=== PATIENT | male | born 1940 | race Caucasian/White ===

== ENCOUNTER 2018-09-26 11:22 | Inpatient (IN) | payer SELFPAY ==
[~2018-09-26] VITALS: Ht 182.9 cm; Wt 82.1 kg
[2018-09-26 11:29] VITALS: BP 122/77
--- NOTE | 2018-09-26 11:40 | NUR ---
C/O CHEST PAIN AND REGINALD SHORTNESS OF BREATH X5 DAYS AT 5/10. PT ALSO REPORTS PAIN WITH URINATION. DENIES N/V/D; SKIN IS PINK/WARM/DRY; AAOX4 WITH EVEN AND STEADY GAIT; LUNGS CLEAR BL; PT DENIES ANY FEVER OR COUGH AT THIS TIME; PATIENT STATES PAIN OF 0/10 AT THIS TIME; VSS; PATIENT POSITIONED FOR COMFORT; HOB ELEVATED; BEDRAILS UP X2; BED DOWN. ER MD MADE AWARE OF PT STATUS.
--- NOTE | 2018-09-26 12:00 | NUR ---
PT's urine has been collected through catheter, size 14.
[2018-09-26 12:13] LABS: BASOPHILS % (AUTO) 0.7 % (0.0-2.0); EOSINOPHILS # (AUTO) 0.1 K/uL (0-0.4); EOSINOPHILS % (AUTO) 1.9 % (0.0-4.0); HEMATOCRIT 41.3 % (36-52); HEMOGLOBIN 14.1 g/dL (12.0-18.0); LYMPHOCYTES # (AUTO) 1.9 K/uL (2.0-11.5); LYMPHOCYTES % (AUTO) 31.7 % (20.5-51.1); MEAN CORPUSCULAR HEMOGLOBIN 33 pg (27-31); MEAN CORPUSCULAR HGB CONC 34 g/dL (33-37); MEAN CORPUSCULAR VOLUME 96.7 fL (80-94); MONOCYTES # (AUTO) 0.5 K/uL (0.8-1.0); MONOCYTES % (AUTO) 9.2 % (1.7-9.3); NEUTROPHILS # (AUTO) 3.3 K/uL (1.8-7.7); NEUTROPHILS % (AUTO) 56.5 % (42.2-75.2); PLATELET COUNT (AUTO) 311 K/uL (140-450); RED BLOOD CELL COUNT(AUTO) 4.27 MIL/uL (4.20-6.10); RED CELL DISTRIBUTION WIDTH 12.9 % (11.6-13.7); WHITE BLOOD COUNT (AUTO) 5.9 K/uL (4.8-10.8)
[2018-09-26 12:27] LABS: ANION GAP 12.8 (8-16); CARBON DIOXIDE 29.2 mmol/L (21-32); CHLORIDE 103 mmol/L (98-107); CREATININE 1.5 mg/dL (0.7-1.3); GLUCOSE 104 mg/dL (74-106); SODIUM SERUM 141 mmol/L (136-145); UREA NITROGEN, BLOOD 20 mg/dL (7-18)
[2018-09-26 12:33] LABS: ALBUMIN 4.1 g/dL (3.4-5.0); ASPARTATE AMINOTRANSFERASE 20 U/L (15-37); TOTAL BILIRUBIN 0.5 mg/dL (0.0-1.0)
[2018-09-26 12:34] LABS: PROTHROMBIN TIME 9.9 secs (10.8-13.4)
[2018-09-26 13:12] LABS: APPEARANCE,URINE CLEAR (CLEAR); BILIRUBIN,URINE NEGATIVE (NEGATIVE); BLOOD, URINE TRACE-I (NEGATIVE); COLOR,URINE YELLOW (YELLOW); LEUKOCYTE ESTERASE ,URINE NEGATIVE (NEGATIVE); NITRITE, URINE NEGATIVE (NEGATIVE); UGLUCOSE NEGATIVE (NEGATIVE)
[2018-09-26 13:17] LABS: BARBITURATE, URINE NEG. ng/ml (NEG <=200); BENZODIAZEPINE, URINE NEG. ng/mL (NEG <=200); CANNABINOID, URINE NEG. ng/mL (NEG <=50); COCAINE, URINE NEG. ng/mL (NEG <=300); OPIATE, URINE NEG. ng/mL (NEG <=2000); PHENCYCLIDINE SCREEN,URINE NEG. ng/mL (NEG <=25)
[2018-09-26 13:23] LABS: RBC,URINE 11-20 (MOD) /HPF (0-5); WBC,URINE 0-5 /HPF (0-5)
[2018-09-26 13:25] LABS: URIC ACID 5.6 mg/dL (2.6-7.2)
[2018-09-26 13:38] LABS: C-REACTIVE PROTEIN QUANT < 0.2 mg/dL (0.0-0.9)
[2018-09-26] MEDS ORDERED: AMIO200T5 PO ×3 (16:27→17:58)
[2018-09-26] MEDS ORDERED: ORE25 PO ×3 (16:27→17:58)
[2018-09-26] MEDS ORDERED: ACETAMINOPHEN 325 MG TAB PO PRN (16:35)
[2018-09-26] MEDS ORDERED: ONDANSETRON 4 MG/2 ML VIAL IM/IVP PRN (16:35)
[2018-09-26] MEDS ORDERED: HYDROcodone/APAP 7.5/325 MG 1 TAB PO PRN (16:35)
[2018-09-26] MEDS ORDERED: DOCUSATE SODIUM 100 MG GELCAP PO PRN (16:35)
[2018-09-26 17:00] VITALS: BP 131/72
--- NOTE | 2018-09-26 17:00 | NUR ---
RECEIVED PATIENT FROM ED VIA WHEELCHAIR. PATIENT ABLE TO AMBULATE WITH A STEADY GAIT. PATIENT IS AAOX4, LUXEMBOURGER SPEAKING. RESPIRATIONS ARE EVEN AND UNLABORED ON ROOM AIR. PATIENT DENIES ANY PAIN AT THIS TIME. LEFT HAND 20G IV INTACT AND SL. PLAN OF CARE WAS REVIEWED WITH PATIENT IN LUXEMBOURGER. PATIENT VERBALIZED UNDERSTANDING. SAFETY MEASURES IN PLACE, CALL LIGHT WITHIN REACH.
--- NOTE | 2018-09-26 17:09 | NUR ---
Patient will be admitted to care of A-flutter and chest pain. Admited to Telemetry. Will go to room 127A. Belongings list completed. Report to ANA Leija.
[2018-09-26] MEDS ORDERED: SERMDI INH (17:33)
[2018-09-26] MEDS ORDERED: FLUT1BLS13 IH (17:35)
[2018-09-26 17:53] LABS: CHOL/HDL RATIO 4.6 (1-4.5); FREE T4 (FREE THYROXINE) 0.56 ng/dL (0.76-1.46); PHOSPHORUS 3.8 mg/dL (2.5-4.9); THYROID STIMULATING HORMONE 51.85 uIU/mL (0.34-3.74)
[2018-09-26] MEDS: NACL 0.9% 1,000 ML IV SCH ×2 (18:02→22:00)
[2018-09-26] MEDS ORDERED: BISACODYL 10 MG SUPP RC PRN (19:10)
--- NOTE | 2018-09-26 19:20 | NUR ---
ENDORSED TO AIR FORCE SENIOR OFFICER FOR CONTINUITY OF CARE. PATIENT IS STABLE AT THIS TIME.
--- NOTE | 2018-09-26 19:21 | NUR ---
RECEIVED REPORT FROM DAY SHIFT NURSE KORTNEY-RN AT BEDSIDE. PT RESTING IN BED WITH FAMILY AT BEDSIDE. AOX4- SERBIAN SPEAKING, ON ROOM AIR WITH LEFT AC #20G RUNNING NS @60ML/HR. DISCUSSED PLAN OF CARE AND PT VERBALIZED UNDERSTANDING. NO S/S OF RESPIRATORY DISTRESS OR DISCOMFORT NOTED AT THIS TIME. BED IN LOWEST POSITION, BED BREAKS ON, BOTH SIDE RAILS UP. BEDSIDE TABLE AND CALL LIGHT ARE WITHIN REACH. WILL CONTINUE TO MONITOR.
[2018-09-26] MEDS ORDERED: NACL 0.9% 1,000 ML IV ONE (19:25)
--- NOTE | 2018-09-26 19:56 | NUR ---
NS BOLUS GIVEN AND TOLERATED WELL.
[2018-09-26 20:00] VITALS: BP 139/73
[2018-09-26] MEDS ORDERED: LEVOTHYROXINE 0.075 MG TAB PO SCH (20:00)
[2018-09-26] MEDS ORDERED: BISACODYL 10 MG SUPP RC SCH (20:00)
--- NOTE | 2018-09-26 20:30 | NUR ---
STYLES CATHETER INSERTED BY NURSE HEALTHCARE MANAGER NURSE DENISHA. PT TOLERATED WELL WITH OUTPUT OF 100ML. NO S/S OF RESPIRATORY DISTRESS OR DISCOMFORT NOTED AT THIS TIME. WILL CONTINUE TO MONITOR.
--- NOTE | 2018-09-26 20:36 | NUR ---
SCHEDULED MEDICATIONS GIVEN AND TOLERATED WELL. PT HAD JUST RETURNED FROM HAVING A SMALL BM- ADMITS TO CONSTIPATION. SUPPOSITORY GIVEN AND TOLERATED WELL. NO S/S OF RESPIRATORY DISTRESS OR DISCOMFORT NOTED AT THIS TIME. WILL CONTINUE TO MONITOR.
--- NOTE | 2018-09-26 21:56 | NUR ---
SCHEDULED MEDICATION HEPARIN SUBQ GIVEN AND TOLERATED WELL. NO S/S OF RESPIRATORY DISTRESS OR DISCOMFORT NOTED AT THIS TIME. WILL CONTINUE TO MONITOR.
--- NOTE | 2018-09-26 22:02 | NUR ---
NEW BAG OF IVF GIVEN AND TOLERATED WELL. NO S/S OF RESPIRATORY DISTRESS OR DISCOMFORT NOTED AT THIS TIME. WILL CONTINUE TO MONITOR.
[2018-09-26] MEDS: ALBUTEROL SULFATE/IPRATROPIU 3 ML SOL IH SCH (22:39)
[2018-09-27] VITALS: BP 141/70
--- NOTE | 2018-09-27 | NUR ---
VITAL SIGNS TAKEN AND TOLERATED WELL. NO S/S OF RESPIRATORY DISTRESS OR DISCOMFORT NOTED AT THIS TIME. WILL CONTINUE TO MONITOR.
[2018-09-27 01:21] LABS: ANION GAP 11.5 (8-16); CARBON DIOXIDE 28.1 mmol/L (21-32); CHLORIDE 104 mmol/L (98-107); CREATININE 1.2 mg/dL (0.7-1.3); GLUCOSE 93 mg/dL (74-106); POTASSIUM 3.6 mmol/L (3.5-5.1); SODIUM SERUM 140 mmol/L (136-145); UREA NITROGEN, BLOOD 18 mg/dL (7-18)
--- NOTE | 2018-09-27 02:00 | NUR ---
PT CONTINUES TO SLEEP IN BED. NO S/S OF RESPIRATORY DISTRESS OR DISCOMFORT NOTED AT THIS TIME. WILL CONTINUE TO MONITOR.
[2018-09-27 04:00] VITALS: BP 115/75
--- NOTE | 2018-09-27 04:00 | NUR ---
VITAL SIGNS TAKEN AND TOLERATED WELL. NO S/S OF RESPIRATORY DISTRESS OR DISCOMFORT NOTED AT THIS TIME. WILL CONTINUE TO MONITOR.
[2018-09-27] MEDS: LEVOTHYROXINE 0.075 MG TAB PO SCH (06:17)
--- NOTE | 2018-09-27 06:17 | NUR ---
SCHEDULED MEDICATION GIVEN AND TOLERATED WELL. OFFERED COLACE FOR CONSTIPATION AND PT AGREED. COLACE GIVEN AND TOLERATED WELL. NO S/S OF RESPIRATORY DISTRESS OR DISCOMFORT NOTED AT THIS TIME. WILL CONTINUE TO MONITOR.
[2018-09-27 06:20] LABS: BASOPHILS % (AUTO) 0.6 % (0.0-2.0); EOSINOPHILS # (AUTO) 0.1 K/uL (0-0.4); EOSINOPHILS % (AUTO) 1.8 % (0.0-4.0); HEMOGLOBIN 13.9 g/dL (12.0-18.0); LYMPHOCYTES # (AUTO) 2.4 K/uL (2.0-11.5); LYMPHOCYTES % (AUTO) 32.8 % (20.5-51.1); MEAN CORPUSCULAR HEMOGLOBIN 33 pg (27-31); MEAN CORPUSCULAR HGB CONC 34 g/dL (33-37); MEAN CORPUSCULAR VOLUME 96.5 fL (80-94); MONOCYTES # (AUTO) 0.6 K/uL (0.8-1.0); MONOCYTES % (AUTO) 8.7 % (1.7-9.3); NEUTROPHILS # (AUTO) 4.2 K/uL (1.8-7.7); NEUTROPHILS % (AUTO) 56.1 % (42.2-75.2); PLATELET COUNT (AUTO) 298 K/uL (140-450); RED BLOOD CELL COUNT(AUTO) 4.25 MIL/uL (4.20-6.10); RED CELL DISTRIBUTION WIDTH 12.9 % (11.6-13.7); WHITE BLOOD COUNT (AUTO) 7.4 K/uL (4.8-10.8)
--- NOTE | 2018-09-27 06:24 | NUR ---
EDGARDO RADIOLOGIST STATED PT CANNOT HAVE CONTRAST PUT IN THE CURRENT IV SITE OF LEFT HAND #20G. NEEDS TO HAVE ANOTHER IV SITE LOCATED PREFERABLY IN THE AC #20G. DR. COY AWARE STATING OK TO GIVE CT OF NECK AND ABDOMEN HOWEVER TO HOLD ANGIOGRAM. ALSO AWARE OF PT CONSTIPATION AND SAID IT WAS OK TO GIVE SUPPOSITORY. WILL OFFER TO PT.
[2018-09-27] MEDS: ALBUTEROL SULFATE/IPRATROPIU 3 ML SOL IH SCH ×3 (06:52→22:08)
--- NOTE | 2018-09-27 07:45 | NUR ---
RECEIVED REPORT FROM MARGE, TRANSFERRING PATIENT TO MY CARE. PATIENT IN STABLE CONDITION. NO SIGNS OF DISTRESS ON RA.
[2018-09-27 08:00] VITALS: BP 110/66
[2018-09-27] MEDS ORDERED: SODIUM PHOSPHATE 118 ML ENEM RC SCH (09:05)
--- NOTE | 2018-09-27 09:13 | NUR ---
PATIENT HAS BEEN SCREENED AND CATEGORIZED MODERATE NUTRITION RISK. PATIENT WILL BE SEEN WITHIN 3-5 DAYS OF ADMISSION. 09/29/18[address]
[2018-09-27] MEDS: LISINOPRIL 5 MG TAB PO SCH (09:39)
[2018-09-27] MEDS: FINASTERIDE 5 MG TAB PO SCH (09:39)
[2018-09-27] MEDS: ECOTRIN 81 MG TABEC PO SCH (09:39)
[2018-09-27] MEDS: AMIODARONE 200 MG TAB PO SCH (09:39)
[2018-09-27] MEDS: HYDROCHLOROTHIAZIDE 25 MG TAB PO SCH (09:40)
--- NOTE | 2018-09-27 09:40 | NUR ---
ADMINISTERED SCHEDULED MEDICATIONS. PATIENT TOLERATED WELL. USED [employer] TO PROVIDE PATIENT EDUCATION. PATIENT SHOWING NO SIGNS OF DISTRESS ON RA. NO C/O PAIN.
[2018-09-27 12:00] VITALS: BP 113/72
--- NOTE | 2018-09-27 12:10 | NUR ---
PATIENT RESTING IN BED. FAMILY AT BEDSIDE, VITALS STABLE. NO SIGNS OF DISTRESS ON RA. STYLES DRAINING SHANTEL COLORED URINE. CALL LIGHT IN REACH
--- NOTE | 2018-09-27 14:45 | NUR ---
PATIENT RESTING IN BED. FAMILY AT BEDSIDE NO DISTRESS NOTED.
[2018-09-27 16:00] VITALS: BP 107/57
--- NOTE | 2018-09-27 16:30 | NUR ---
PATIENT AMBULATED TO BATHROOM HAS HAD 2 BOWEL MOVEMENTS SINCE ENEMA WAS ADMINISTERED. GAIT STEADY, NO SIGNS OF DISTRESS WHEN AMBULATING. PATIENT IN STABLE CONDITION.
[2018-09-27] MEDS ORDERED: ATORVASTATIN 20 MG TAB PO SCH (17:00)
[2018-09-27] MEDS ORDERED: WARFARIN 2.5 MG TAB PO SCH (18:32)
[2018-09-27] MEDS ORDERED: MAGNESIUM CITRATE 300 ML BTL PO SCH (19:00)
--- NOTE | 2018-09-27 19:25 | NUR ---
GAVE REPORT TO RADIATION THERAPIST RNLEX. PATIENT IN STABLE CONDITION.
--- NOTE | 2018-09-27 19:26 | NUR ---
RECEIVED REPORT FROM DAY SHIFT NURSE MARSHALL-RN AT BEDSIDE. PT RESTING IN BED WITH FAMILY AT BEDSIDE. AOX4- NEPALESE SPEAKING, ON ROOM AIR WITH LEFT AC #20G. STYLES CATHETER IN PLACE AND DRAINING WELL. DISCUSSED PLAN OF CARE AND PT VERBALIZED UNDERSTANDING. NO S/S OF RESPIRATORY DISTRESS OR DISCOMFORT NOTED AT THIS TIME. BED IN LOWEST POSITION, BED BREAKS ON, BOTH SIDE RAILS UP. BEDSIDE TABLE AND CALL LIGHT ARE WITHIN REACH. WILL CONTINUE TO MONITOR.
[2018-09-27 20:00] VITALS: BP 110/64
--- NOTE | 2018-09-27 20:00 | NUR ---
VITAL SIGNS TAKEN AND TOLERATED WELL. NO S/S OF RESPIRATORY DISTRESS OR DISCOMFORT NOTED AT THIS TIME. WILL CONTINUE TO MONITOR.
[2018-09-27] MEDS: NACL 0.9% 1,000 ML IV SCH (20:12)
--- NOTE | 2018-09-27 20:13 | NUR ---
SCHEDULED MEDICATION HEPARIN GIVEN AND TOLERATED WELL. WAS ENDORSED TO GIVE MISSED MEDICATIONS LIPITOR, COUMADIN AND CITROMA- MEDICATIONS GIVEN AND TOLERATED WELL. EDUCATED PT ON COUMADIN AND PT VERBALIZED UNDERSTANDING. ALSO EDUCATED PT ON CITROMA LAXATIVE AND TO BE AWARE THAT HE WILL BE VISITING THE TOILET REPEATEDLY THROUGHOUT THE NIGHT. PT VERBALIZED UNDERSTANDING. NO S/S OF RESPIRATORY DISTRESS OR DISCOMFORT NOTED AT THIS TIME. WILL CONTINUE TO MONITOR.
--- NOTE | 2018-09-27 20:30 | NUR ---
LEFT HAND #20G BEGAN TO LEAK WHEN NEW BAG OF IVF BEGAN TO INFUSE CAUSING PAIN. NEW IV SITE STARTED ON RIGHT FA #20G BY HEEL SCOURER NURSE RICARDO-RN ON FIRST TRY. PT TOLERATED WELL. NO S/S OF RESPIRATORY DISTRESS OR DISCOMFORT NOTED AT THIS TIME. WILL CONTINUE TO MONITOR.
[2018-09-27] MEDS: NITROGLYCERIN 0.4 MG TAB SL PRN ×2 (22:46→23:37)
--- NOTE | 2018-09-27 22:46 | NUR ---
PT BEGAN TO C/O MILD CHEST PAIN. WHEN ASKED IF IT IS SIMILAR TO THE CHEST PAIN HE EXPERIENCED BEFORE BEING ADMITTED TO THE HOSPITAL HE ADMITTED IT WAS THE SAME HOWEVER MILD IN INTENSITY. SPOKE WITH DR. UNDERWOOD AND DR. MARIE AND WAS EXAMINED BY DR. MARIE- ADVISED TO GIVE NITROSTAT. MEDICATION GIVEN AND TOLERATED WELL. NO S/S OF RESPIRATORY DISTRESS OR DISCOMFORT NOTED AT THIS TIME. WILL CONTINUE TO MONITOR.
--- NOTE | 2018-09-27 23:37 | NUR ---
PT CONTINUES TO C/O MILD CHEST PAIN REQUESTING ANOTHER NITROSTAT. MEDICATION GIVEN AND TOLERATED WELL. NO S/S OF RESPIRATORY DISTRESS OR DISCOMFORT NOTED AT THIS TIME. WILL CONTINUE TO MONITOR.
[2018-09-28] VITALS: BP 91/55
--- NOTE | 2018-09-28 | NUR ---
VITAL SIGNS TAKEN AND TOLERATED WELL. NO S/S OF RESPIRATORY DISTRESS OR DISCOMFORT NOTED AT THIS TIME. WILL CONTINUE TO MONITOR.
--- NOTE | 2018-09-28 02:00 | NUR ---
PT SLEEPING IN BED. NO S/S OF RESPIRATORY DISTRESS OR DISCOMFORT NOTED AT THIS TIME. WILL CONTINUE TO MONITOR.
[2018-09-28 04:00] VITALS: BP 119/63
--- NOTE | 2018-09-28 04:45 | NUR ---
PT STATED HE HAD ONE LARGE BM AND IS FINALLY FEELING RELIEF FROM HIS CONSTIPATION. NO S/S OF RESPIRATORY DISTRESS OR DISCOMFORT NOTED AT THIS TIME. WILL CONTINUE TO MONITOR.
--- NOTE | 2018-09-28 06:00 | NUR ---
PT CONTINUES TO SLEEP IN BED. NO S/S OF RESPIRATORY DISTRESS OR DISCOMFORT NOTED AT THIS TIME. WILL CONTINUE TO MONITOR.
[2018-09-28] MEDS: LEVOTHYROXINE 0.075 MG TAB PO SCH (06:22)
--- NOTE | 2018-09-28 06:22 | NUR ---
SCHEDULED MEDICATION SYNTHROID GIVEN AND TOLERATED WELL. NO S/S OF RESPIRATORY DISTRESS OR DISCOMFORT NOTED AT THIS TIME. WILL CONTINUE TO MONITOR.
--- NOTE | 2018-09-28 06:27 | NUR ---
EDUCATED PT ON HOW TO PREVENT CONSTIPATION BY DRINKING WATER, ADDING FIBER TO DIET AND THE DIFFERENCE BETWEEN STOOL SOFTENERS AND LAXATIVES. PT VERBALIZED UNDERSTANDING. NO S/S OF RESPIRATORY DISTRESS OR DISCOMFORT NOTED AT THIS TIME. WILL CONTINUE TO MONITOR.
[2018-09-28 06:35] LABS: BASOPHILS % (AUTO) 0.5 % (0.0-2.0); EOSINOPHILS # (AUTO) 0.1 K/uL (0-0.4); EOSINOPHILS % (AUTO) 1.1 % (0.0-4.0); HEMOGLOBIN 11.9 g/dL (12.0-18.0); LYMPHOCYTES # (AUTO) 1.5 K/uL (2.0-11.5); LYMPHOCYTES % (AUTO) 21.4 % (20.5-51.1); MEAN CORPUSCULAR HEMOGLOBIN 33 pg (27-31); MEAN CORPUSCULAR HGB CONC 34 g/dL (33-37); MONOCYTES # (AUTO) 0.8 K/uL (0.8-1.0); MONOCYTES % (AUTO) 11.1 % (1.7-9.3); NEUTROPHILS # (AUTO) 4.6 K/uL (1.8-7.7); NEUTROPHILS % (AUTO) 65.9 % (42.2-75.2); PLATELET COUNT (AUTO) 263 K/uL (140-450); RED BLOOD CELL COUNT(AUTO) 3.61 MIL/uL (4.20-6.10); RED CELL DISTRIBUTION WIDTH 12.9 % (11.6-13.7)
[2018-09-28 07:03] LABS: ANION GAP 12.9 (8-16); CARBON DIOXIDE 26.9 mmol/L (21-32); CHLORIDE 104 mmol/L (98-107); GLUCOSE 90 mg/dL (74-106); POTASSIUM 3.8 mmol/L (3.5-5.1); SODIUM SERUM 140 mmol/L (136-145); UREA NITROGEN, BLOOD 19 mg/dL (7-18)
[2018-09-28 07:04] LABS: CREATININE 1.3 mg/dL (0.7-1.3)
[2018-09-28 07:11] LABS: PROTHROMBIN TIME 9.7 secs (10.8-13.4)
[2018-09-28 08:00] VITALS: BP 124/74
[2018-09-28] MEDS: ECOTRIN 81 MG TABEC PO SCH (09:48)
[2018-09-28] MEDS: AMIODARONE 200 MG TAB PO SCH (09:48)
[2018-09-28] MEDS: HYDROCHLOROTHIAZIDE 25 MG TAB PO SCH (09:48)
[2018-09-28] MEDS: FINASTERIDE 5 MG TAB PO SCH (09:48)
[2018-09-28] MEDS: LISINOPRIL 5 MG TAB PO SCH (09:48)
--- NOTE | 2018-09-28 09:49 | NUR ---
ADMINISTERED SCHEDULED MEDICATION. EDUCATED PATIENT ON NEW MEDICATION WARFARIN TO BE STARTED LATER TODAY. [facility] [place] # [id number]. PATIENT TOLERATED MEDICATIONS WELL.
[2018-09-28] MEDS: ALBUTEROL SULFATE/IPRATROPIU 3 ML SOL IH SCH ×2 (09:50→15:54)
--- NOTE | 2018-09-28 10:00 | NUR ---
ADMINISTERED AMIODARONE AT 0949. PATIENT HR IS 53. AWARE. HIP HOP PERFORMERS AWARE. PATIENT HAS BEEN RECEIVING THIS MEDICATION DAILY WITHOUT ANY ADVERSE EFFECTS. PATIENT HAS BEEN ASYMPTOMATIC BRADYCARDIA. WILL MONITOR CLOSELY.
[2018-09-28 12:00] VITALS: BP 117/72
--- NOTE | 2018-09-28 12:15 | NUR ---
DISCONTINUED STYLES CATHETER. REMOVED 10CC OF NS FOR FROM BALLOON, REMOVED FROM PATIENT, TIP INTACT. PATIENT TOLERATED WELL. REMOVED ADHESIVE PATCH FROM RIGHT THIGH.
--- NOTE | 2018-09-28 13:20 | NUR ---
PATIENT AMBULATED TO BATHROOM, URINATED WITHOUT PROBLEMS. WILL INFORM DOCTOR. PATIENT GAIT STEADY.
[2018-09-28] MEDS ORDERED: TAMS0.4C96 PO (13:56)
[2018-09-28] MEDS ORDERED: WARF2.5T77 PO (13:56)
[2018-09-28] MEDS ORDERED: DOCU-299 PO (13:56)
[2018-09-28] MEDS ORDERED: MIRABULK PO (13:57)
[2018-09-28] MEDS ORDERED: CIPR500T4 PO (14:08)
[2018-09-28] MEDS ORDERED: WARF-99 PO (14:11)
[2018-09-28] MEDS ORDERED: SYN.075 PO (14:22)
[2018-09-28 15:16] VITALS: BP 118/73
--- NOTE | 2018-09-28 15:45 | NUR ---
PATIENT RESTING IN BED. FAMILY AT BEDSIDE. VITALS STABLE. SAFETY PRECAUTIONS IN PLACE.
[2018-09-28 16:00] VITALS: BP 120/75
--- NOTE | 2018-09-28 16:45 | NUR ---
DISCHARGE PAPERWORK COMPLETE. SPOKE TO PATIENT USING [employer], PATIENT PREFERS TO WAIT UNTIL DAUGHTER RETURNS TO BE PRESENT FOR DISCHARGE EDUCATION.
[2018-09-28] MEDS ORDERED: WARFARIN 1 MG TAB PO SCH (17:00)
[2018-09-28] MEDS ORDERED: WARFARIN 2.5 MG TAB PO SCH (17:00)
== END 2018-09-28 18:05 | disposition home or self-care (01) | DRG 725 ==
LOC: MED 11:22 → MMU 16:31
PROVIDERS: ADMIT General Practice; ATTEND General Practice
DX: N40.1 Benign prostatic hyperplasia with lower urinary tract symptoms (principal); N17.0 Acute kidney failure with tubular necrosis; I48.92 Unspecified atrial flutter; N13.8 Other obstructive and reflux uropathy; N12 Tubulo-interstitial nephritis, not specified as acute or chronic; I42.9 Cardiomyopathy, unspecified; I48.0 Paroxysmal atrial fibrillation; F43.9 Reaction to severe stress, unspecified; R79.89 Other specified abnormal findings of blood chemistry; E03.9 Hypothyroidism, unspecified; R13.10 Dysphagia, unspecified; E78.2 Mixed hyperlipidemia; I10 Essential (primary) hypertension; J44.9 Chronic obstructive pulmonary disease, unspecified; K59.00 Constipation, unspecified; Z87.891 Personal history of nicotine dependence
CPT/HCPCS: 36415; 70490; 71045; 80048; 80053; 80305; 81001; 82150; 83036; 83690; 83735; 83880; 84100; 84436; 84439; 84443; 84479; 84484; 84550; 85025; 85379; 85610; 85651; 85730; 86140; 87081; 93005; 93970; 94640; 99285; C1758; G0482; J0696; J1644; J7030; J7060; J7620; Q0092